=== PATIENT | male | born 1985 | race African-American/Black ===

== ENCOUNTER 2016-11-26 14:54 | Emergency (ER) | payer SELFPAY ==
[~2016-11-26 14:54] MED LIST: OMEP20TA39 PO; SUCR1TAB PO; ZOFR4TAB PO
[2016-11-26 14:55] VITALS: BP 176/105; PULSE 62; RESP 19; TEMP 98.6; O2SAT 100
[2016-11-26] MEDS ORDERED: OMEP40CA2 PO (15:14)
[2016-11-26] MEDS ORDERED: ONDANSETRON HCL 4 MG/2 ML VIAL IVP ONE (15:30)
[2016-11-26] MEDS ORDERED: SODIUM CHLORIDE 0.9% FLUSH 10 ML FLUSH IV FLUSH PRN (15:30)
[2016-11-26] MEDS ORDERED: MORPHINE SULFATE 4 MG/ML INJ IV PUSH ONE (15:30)
[2016-11-26 15:31] VITALS: RESP 17; O2SAT 99
[2016-11-26 15:37] VITALS: RESP 17
--- NOTE | 2016-11-26 15:42 | PD ---
HPI . Abdominal pain Chief Complaint: Abdominal Pain Time Seen by Provider: 15:16 Travel History International Travel<30 days: No Contact w/Intl Traveler<30days: No Traveled to known affect area: No History of Present Illness HPI Patient presents with the acute onset of upper abdominal pain. It started 2 hours prior to presentation. It has been continuous. He states that it is a sharp pain that he rates 10/10. Associated with emesis. He denies diarrhea or fever. He denies urinary tract symptoms. He denies known sick contacts. He reports positive previous similar symptoms. [facility] Past Medical History Diminished Hearing: No Gastrointestinal Disorders: Yes (H/O COLITIS) GERD: Yes Immunizations Current: No Ulcer: Yes Tetanus Vaccination: < 5 Years Influenza Vaccination: No Past Surgical History Surgical History: No Previous Surgery Other Surgery: Yes (ENDOSCOPY) Social History Alcohol Use: Yes (OCCASIONAL) Tobacco Use: Yes (3-4 cig per day ) Substance Use: Yes (MARIJUANA) Allergies-Medications (Allergen,Severity, Reaction): Coded Allergies: No Known Allergies (Unverified , 11/26/16) Reported Meds & Prescriptions Reported Meds & Active Scripts Active Reported Omeprazole 40 Mg Cap 40 Mg PO DAILY Review of Systems Except as stated in HPI: all other systems reviewed are Neg General / Constitutional: No: Fever, Chills Gastrointestinal: Positive: Nausea, Vomiting, Abdominal Pain, No: Diarrhea Genitourinary: No: Urgency, Frequency, Dysuria Physical Exam Narrative GENERAL: Patient is tearful and diaphoretic. SKIN: Warm but diaphoretic. HEAD: Atraumatic. Normocephalic. EYES: Pupils equal and round. Sclera anicteric. ENT: No nasal bleeding or discharge. Mucous membranes pink and moist. NECK: Trachea midline. Neck supple. CARDIOVASCULAR: Regular rate and rhythm. Heart sounds normal. RESPIRATORY: No accessory muscle use. Lungs clear with full air movement throughout. GASTROINTESTINAL: Abdomen soft,. Positive bowel sounds. Diffuse abdominal tenderness. Nondistended. MUSCULOSKELETAL: No obvious deformities. No edema. NEUROLOGICAL: Awake and alert. No obvious cranial nerve deficits. Motor grossly within normal limits. Normal speech. PSYCHIATRIC: Appropriate mood and affect; insight and judgment normal. Data Data Last Documented VS Vital Signs Date Time Temp Pulse Resp B/P Pulse Ox O2 Delivery O2 Flow Rate FiO2 11/26/16 15:37 17 11/26/16 15:31 99 Room Air 4/8/17 14:55 98.6 62 176/105 Orders Complete Blood Count With Diff (11/26/16 15:17) Comprehensive Metabolic Panel (11/26/16 15:17) Lipase (11/26/16 15:17) Iv Access Insert/Monitor (11/26/16 15:17) Ecg Monitoring (11/26/16 15:17) Oximetry (11/26/16 15:17) Morphine Inj (Morphine Inj) (11/26/16 15:30) Ondansetron Inj (Zofran Inj) (11/26/16 15:30) Sodium Chloride 0.9% Flush (Ns Flush) (11/26/16 15:30) Electrocardiogram (11/26/16 15:17) Labs Laboratory Tests Test 11/26/16 15:31 White Blood Count 5.7 TH/MM3 Red Blood Count 4.66 MIL/MM3 Hemoglobin 14.7 GM/DL Hematocrit 42.3 % Mean Corpuscular Volume 90.8 FL Mean Corpuscular Hemoglobin 31.5 PG Mean Corpuscular Hemoglobin 34.7 % Concent Red Cell Distribution Width 13.5 % Platelet Count 220 TH/MM3 Mean Platelet Volume 8.0 FL Neutrophils (%) (Auto) 77.1 % Lymphocytes (%) (Auto) 13.2 % Monocytes (%) (Auto) 7.7 % Eosinophils (%) (Auto) 1.7 % Basophils (%) (Auto) 0.3 % Neutrophils # (Auto) 4.4 TH/MM3 Lymphocytes # (Auto) 0.8 TH/MM3 Monocytes # (Auto) 0.4 TH/MM3 Eosinophils # (Auto) 0.1 TH/MM3 Basophils # (Auto) 0.0 TH/MM3 CBC Comment DIFF FINAL Differential Comment Sodium Level 138 MEQ/L Potassium Level 3.6 MEQ/L Chloride Level 105 MEQ/L Carbon Dioxide Level 26.6 MEQ/L Anion Gap 6 MEQ/L Blood Urea Nitrogen 14 MG/DL Creatinine 1.18 MG/DL Estimat Glomerular Filtration 88 ML/MIN Rate Random Glucose 89 MG/DL Calcium Level 8.9 MG/DL Total Bilirubin 0.3 MG/DL Aspartate Amino Transf 26 U/L (AST/SGOT) Alanine Aminotransferase 54 U/L (ALT/SGPT) Alkaline Phosphatase 68 U/L Total Protein 7.6 GM/DL Albumin 3.8 GM/DL Lipase 68 U/L [facility] Medical Decision Making Medical Screen Exam Complete: Yes Emergency Medical Condition: Yes Medical Record Reviewed: Yes (records reviewed. Patient was seen here about a year ago with pretty much the exact same symptom complex. He was treated successfully with IV fluids, morphine and Zofran. He had a CT of his abdomen and pelvis and a gallbladder ultrasound which were negative.) Interpretation(s) EKG shows a normal sinus rhythm. He has an early repolarization pattern. This is unchanged from previous. Differential Diagnosis Differential diagnosis of abdominal pain includes but is not limited to gastritis, pancreatitis, hepatitis, gastroenteritis, gallbladder disease, constipation, urinary retention, UTI, peptic ulcer disease, diverticulitis or appendicitis Narrative Course Patient presents with acute onset of upper abdominal pain associated with vomiting. He will be treated with IV fluids, IV morphine and Zofran. Routine labs have been ordered. CBC & BMP Diagram 11/26/16 15:31 LFTs and lipase are normal. Patient reports that he feels much better. He states that his only complaint currently is that he is hungry. Diagnosis Primary Impression: Abdominal pain Qualified Code: R10.84 - Generalized abdominal pain Additional Impression: Vomiting Qualified Code: R11.2 - Non-intractable vomiting with nausea, unspecified vomiting type Patient Instructions: Acute Nausea and Vomiting (DC), Epigastric Pain (ED), General Instructions Disposition: 01 DISCHARGE HOME Condition: Stable Micaela Hackett MD Nov 26, 2016 15:42
[2016-11-26 16:32] LABS: AUTOMATED NEUTROPHIL # 4.4 TH/MM3 (1.8-7.7); BASOPHIL % 0.3 % (0.0-2.0); EOSINOPHIL # 0.1 TH/MM3 (0-0.4); EOSINOPHIL % 1.7 % (0.0-4.0); HEMATOCRIT 42.3 % (39.0-51.0); HEMO FLAGS DIFF FINAL; LYMPH % 13.2 % (9.0-44.0); LYMPHOCYTE # 0.8 TH/MM3 (1.0-4.8); MEAN CELL VOLUME 90.8 FL (80.0-100.0); MEAN CORPUSCULAR HEMOGLOBIN 31.5 PG (27.0-34.0); MEAN CORPUSCULAR HGB CONC 34.7 % (32.0-36.0); MONO % 7.7 % (0.0-8.0); NEUT % 77.1 % (16.0-70.0); PLATELET COUNT 220 TH/MM3 (150-450); RED BLOOD COUNT 4.66 MIL/MM3 (4.50-5.90); RED CELL DISTRIBUTION WIDTH 13.5 % (11.6-17.2); WHITE BLOOD COUNT 5.7 TH/MM3 (4.0-11.0)
[2016-11-26 17:01] LABS: ANION GAP 6 MEQ/L (5-15); AST (GOT) 26 U/L (15-37); BICARBONATE 26.6 MEQ/L (21.0-32.0); BLOOD UREA NITROGEN 14 MG/DL (7-18); CHLORIDE 105 MEQ/L (98-107); GLOMERULAR FILTRATION RATE 88 ML/MIN (>89); POTASSIUM 3.6 MEQ/L (3.5-5.1); SODIUM (NA) 138 MEQ/L (136-145)
[2016-11-26 17:05] LABS: ALKALINE PHOSPHATASE 68 U/L (45-117); ALT (GPT) 54 U/L (12-78); TOTAL BILIRUBIN ADULT 0.3 MG/DL (0.2-1.0)
[2016-11-26 17:29] VITALS: BP 122/81; TEMP 97.8
--- NOTE | 2016-11-27 10:36 | EKG ---
Date Performed: 11/26/2016 Time Performed: 16:16:23 PTAGE: 31 years EKG: SINUS BRADYCARDIA WITH SINUS ARRHYTHMIA VOLTAGE CRITERIA FOR LVH ABNORMAL ECG Compared to p rior tracing no significant change PREVIOUS TRACING : 03/23/2012 15.05 DOCTOR: Ann Branham Interpretating Date/Time 11/27/2016 10:30:22
== END 2016-11-26 17:31 | disposition home or self-care (01) ==
LOC: NEPD 14:54
DX: R10.84 Generalized abdominal pain (principal); R11.2 Nausea with vomiting, unspecified; R00.1 Bradycardia, unspecified; K21.9 Gastro-esophageal reflux disease without esophagitis; F17.210 Nicotine dependence, cigarettes, uncomplicated
CPT/HCPCS: 80053; 83690; 85025; 93005; 96374; 96375; 99284; J2270; J2405